=== PATIENT | male | born 1975 | race African-American/Black ===

== ENCOUNTER 2017-03-04 08:09 | Inpatient (IN) | payer OTHER ==
[2017-03-04 10:26] VITALS: BMI 32.5
--- NOTE | 2017-03-04 16:13 | HP ---
Admission [facility] Chief Complaint: I AM HERE FOR REHAB FROM ALCOHOL AND COCAINE Allergies/Adverse Reactions: Allergies Allergy/AdvReac Type Severity Reaction Status Date / Time No Known Allergies Allergy Verified 03/04/17 16:04 History of Present Illness: THIS 42 YEARS BLACK OLD MALE WITH ALCOHOL AND COCAINE DEPENDENCE,SEEKING REHAB, LAST DETOX [facility] 2014 DEPRESSION NICOTINE DEPENDENCE SYNCOPE S/P LEFT INGUINAL HERNIA REPAIR LONGEST PERIOD OF SOBRIETY 2 AND A HALF YEAR Exam Limitations: No Limitations - Ebola screening Have you traveled outside of the country in the last 21 days: No Have you had contact with anyone from an Ebola affected area: No Have you been sick,other than usual withdrawal symptoms: No - Review of Systems Constitutional: No Symptoms Reported EENT: reports: No Symptoms Reported Respiratory: reports: No Symptoms reported Cardiac: reports: No Symptoms Reported GI: reports: No Symptoms Reported : reports: No Symptoms Reported Musculoskeletal: reports: No Symptoms Reported Integumentary: reports: No Symptoms Reported Neuro: reports: No Symptoms reported Endocrine: reports: No Symptoms Reported Hematology: reports: No Symptoms Reported Psychiatric: reports: Judgement Intact, Mood/Affect Appropiate, Orientated x3, Depressed Patient History - Patient Medical History Hx Anemia: No Hx Asthma: No Hx Chronic Obstructive Pulmonary Disease (COPD): No Hx Cancer: No Hx Cardiac Disorders: No Hx Congestive Heart Failure: No Hx Hypertension: No Hx Hypercholesterolemia: No Hx Pacemaker: No HX Cerebrovascular Accident: No Hx Seizures: No Hx Dementia: No Hx Diabetes: No Hx Gastrointestinal Disorders: No Hx Liver Disease: No Hx Genitourinary Disorders: No Hx Sexually Transmitted Disorders: No (DENIES) Hx Renal Disease (ESRD): No Hx Human Immunodeficiency Virus (HIV): No (NEGATIVE HX) Hx Hepatitis C: No Hx Depression: Yes (ON MED) Hx Suicide Attempt: Yes (tried to overdose in 09/01;) Hx Schizophrenia: No Other Medical History: NO SUICIDAL,NO HOMICIDAL - Patient Surgical History Past Surgical History: Yes Hx Abdominal Surgery: Yes (L inguinal hernia repair) Anesthesia Reaction: No - PPD History Previous Implant?: Yes Documented Results: Negative w/o proof Date: 06/17/15 PPD to be Administered?: Yes - Smoking Cessation Smoking history: Current every day smoker Have you smoked in the past 12 months: Yes Aproximately how many cigarettes per day: 10 Hx Chewing Tobacco Use: No Initiated information on smoking cessation: Yes 'Breaking Loose' booklet given: 03/04/17 - Substance & Tx. History Hx Alcohol Use: Yes Hx Substance Use: Yes Substance Use Type: Alcohol, Cocaine - Substances Abused Alcohol Route: Oral Frequency: Daily Amount used: 10 BEERS/ 1 LITER VODKA Age of first use: 14 Date of Last Use: 03/01/17 Cocaine Route: Smoking Frequency: Daily Amount used: 2 GRAMS Age of first use: 15 Date of Last Use: 03/04/17 Family Disease History - Family Disease History Family Disease History: Diabetes: Mother (ALCOHOL), Other: Mother Admission Physical Exam [facility] - Vital Signs Vital Signs: Vital Signs - 24 hr 03/04/17 10:23 Temperature 96.2 F L Pulse Rate 92 H Respiratory 20 Rate Blood Pressure 107/56 - Physical General Appearance: Yes: Within Normal Limits, No Apparent Distress HEENTM: Yes: Within Normal Limits, Normal ENT Inspection, SAW, Pharynx Normal Respiratory: Yes: Lungs Clear, Normal Breath Sounds, No Respiratory Distress Neck: Yes: Within Normal Limits, Supple, Trachea in good position Breast: Yes: Within Normal Limits Cardiology: Yes: Within Normal Limits, Regular Rhythm, Regular Rate, S1, S2 Abdominal: Yes: Within Normal Limits, Normal Bowel Sounds, Non Tender, Flat, Soft Genitourinary: Yes: Within Normal Limits Back: Yes: Normal Inspection Musculoskeletal: Yes: full range of Motion Extremities: Yes: Within Normal Limits Neurological: Yes: carbide powder processor II-XII NML intact, Fully Oriented, Alert, Motor Strength 5/5 Integumentary: Yes: Within Normal Limits Lymphatic: Yes: Within Normal Limits - Diagnostic (1) Alcohol dependence Current Visit: No Status: Acute (2) Cocaine dependence Current Visit: No Status: Acute (3) Nicotine dependence Current Visit: No Status: Acute (4) Depression Current Visit: No Status: Chronic (5) Insomnia Current Visit: Yes Status: Acute (6) H/O left inguinal hernia repair Current Visit: Yes Status: Acute Cleared for Admission [facility] - Detox or Rehab Claeared for Rehab Admission: Yes [facility] Breath Alcohol Content Breath Alcohol Content: 0 Urine Drug Screen - Results Drug Screen Negative: No Urine Drug Screen Results: EL-Cocaine, TCA-Tricyclic Antidepress
[2017-03-04] MEDS ORDERED: IBUPROFEN 400 MG TABLET (FP) PO PRN (16:21)
[2017-03-04] MEDS ORDERED: P-EPHED 60MG/TRIPROLIDI 2.5MG TABLET PO PRN (16:21)
[2017-03-04] MEDS ORDERED: MAGNESIUM HYDROX 2400MG/30ML ORAL SUSPENSION 30 ML CUP PO PRN (16:21)
[2017-03-04] MEDS ORDERED: MENTHOL/PHENOL 1 EACH UD MM PRN (16:21)
[2017-03-04] MEDS ORDERED: diphenhydrAMINE HCL 50 MG CAPSULE PO PRN (16:21)
[2017-03-04] MEDS ORDERED: guaiFENesin/D-METHORPHAN HB 10 ML UNIT-DOSE CUPS PO PRN (16:21)
[2017-03-04] MEDS ORDERED: MAG HYDROX/AL HYDROX/SIMETH 30 ML UNIT-DOSE CUP PO PRN (16:21)
[2017-03-04] MEDS ORDERED: ACETAMINOPHEN 325 MG TABLET (FP) PO PRN (16:21)
[2017-03-04] MEDS ORDERED: MAGNESIUM CITRATE 300 ML BOTTLE PO PRN (16:21)
[2017-03-04] MEDS ORDERED: hydrOXYzine PAMOATE 50 MG CAPSULE (FP) PO PRN (16:21)
[2017-03-04] MEDS ORDERED: LOPERAMIDE HCL 2 MG CAPSULE PO PRN (16:21)
[2017-03-04] MEDS ORDERED: TUBERCULIN PPD 5 TU/0.1ML VIAL ID ONE (18:02)
[2017-03-04] MEDS: NICOTINE 21 MG/24 HOURS TOPICAL PATCH TD SCH (18:04)
[2017-03-04] MEDS: THIAMINE HCL 100 MG TABLET (FP) PO SCH (21:38)
[2017-03-04] MEDS: MIRTAZAPINE 30 MG TABLET (FP) PO SCH (21:38)
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
[2017-03-05 10:01] LABS: CALCIUM 8.9 mg/dL (8.5-10.1)
[2017-03-05 10:06] LABS: ALBUMIN 3.5 g/dl (3.4-5.0); ALK PHOS 81 U/L (45-117); ANION GAP 5 (8-16); BILIRUBIN,TOTAL 0.2 mg/dL (0.2-1.0); CO2 30 mmol/L (21-32); COCKROFT - GAULT 154.34; CREATININE 1.1 mg/dL (0.7-1.3); GLUCOSE,RANDOM 97 mg/dL (74-106); SGOT/AST 23 U/L (15-37); SGPT/ALT 37 U/L (12-78); TOT PROT 6.3 g/dl (6.4-8.2)
[2017-03-05 10:27] LABS: MCH 30.3 pg (25.7-33.7); MEAN CELL VOLUME 91.9 fl (80-96); MEAN PLT VOLUME 10.2 fl (7.5-11.1); PLATELET COUNT 144 K/MM3 (134-434); RDW 15.3 % (11.9-15.9); WHITE BLOOD COUNT 5.1 K/mm3 (4.0-10.0)
[2017-03-05] MEDS: LORATADINE 10 MG TABLET PO SCH (10:41)
[2017-03-05] MEDS: NICOTINE POLACRILEX 2 MG GUM BUC PRN ×2 (10:41→21:48)
[2017-03-05] MEDS: NICOTINE 21 MG/24 HOURS TOPICAL PATCH TD SCH (10:41)
[2017-03-05] MEDS: PRENATAL VITAMINS W/ FOLIC ACID TABLET (FP) PO SCH (10:41)
--- NOTE | 2017-03-05 11:37 | EKG ---
Test Reason : Blood Pressure : / mmHG Vent. Rate : 079 BPM Atrial Rate : 079 BPM P-R Int : 148 ms QRS Dur : 100 ms QT Int : 388 ms P-R-T Axes : 061 -05 026 degrees QTc Int : 444 ms NORMAL SINUS RHYTHM NONSPECIFIC ST ABNORMALITY ABNORMAL ECG NO PREVIOUS ECGS AVAILABLE Confirmed by APRIL KINCAID, AUBREE ([id number]) on 03/05/2017 11:36:52 AM Referred By: Ciera Olivares Confirmed By:AUBREE CHEN MD
[2017-03-05 15:23] LABS: URINE APPEARANCE CLEAR; URINE BILIRUBIN NEGATIVE (NEGATIVE); URINE BLOOD NEGATIVE (NEGATIVE); URINE COLOR DKYELLOW; URINE GLUCOSE (UA) NEGATIVE (NEGATIVE); URINE KETONE NEGATIVE (NEGATIVE); URINE LEUK ESTERASE NEGATIVE (NEGATIVE); URINE NITRITE NEGATIVE (NEGATIVE); URINE PROTEIN NEGATIVE (NEGATIVE); URINE UROBILINOGEN NEGATIVE E.U./dl (0.2-1.0)
[2017-03-05] MEDS: THIAMINE HCL 100 MG TABLET (FP) PO SCH (21:46)
[2017-03-05] MEDS: MIRTAZAPINE 30 MG TABLET (FP) PO SCH (21:47)
[2017-03-05] MEDS ORDERED: MIRTAZAPINE 15 MG TABLET (FP) ONE (21:47)
[2017-03-06] MEDS: NICOTINE 21 MG/24 HOURS TOPICAL PATCH TD SCH (10:26)
[2017-03-06] MEDS: PRENATAL VITAMINS W/ FOLIC ACID TABLET (FP) PO SCH (10:27)
[2017-03-06] MEDS: LORATADINE 10 MG TABLET PO SCH (10:27)
[2017-03-06] MEDS: MIRTAZAPINE 30 MG TABLET (FP) PO SCH (21:46)
[2017-03-06] MEDS: THIAMINE HCL 100 MG TABLET (FP) PO SCH (21:46)
[2017-03-07] MEDS: PRENATAL VITAMINS W/ FOLIC ACID TABLET (FP) PO SCH (10:19)
[2017-03-07] MEDS: NICOTINE 21 MG/24 HOURS TOPICAL PATCH TD SCH (10:19)
[2017-03-07] MEDS: LORATADINE 10 MG TABLET PO SCH (10:19)
[2017-03-07] MEDS: MIRTAZAPINE 30 MG TABLET (FP) PO SCH (21:50)
[2017-03-07] MEDS: THIAMINE HCL 100 MG TABLET (FP) PO SCH (21:50)
[2017-03-08] MEDS: LORATADINE 10 MG TABLET PO SCH (10:30)
[2017-03-08] MEDS: PRENATAL VITAMINS W/ FOLIC ACID TABLET (FP) PO SCH (10:30)
[2017-03-08] MEDS: NICOTINE 21 MG/24 HOURS TOPICAL PATCH TD SCH (10:30)
[2017-03-08] MEDS: MIRTAZAPINE 30 MG TABLET (FP) PO SCH (21:45)
[2017-03-08] MEDS: THIAMINE HCL 100 MG TABLET (FP) PO SCH (21:45)
[2017-03-09] MEDS: NICOTINE 21 MG/24 HOURS TOPICAL PATCH TD SCH (10:34)
[2017-03-09] MEDS: LORATADINE 10 MG TABLET PO SCH (10:34)
[2017-03-09] MEDS: PRENATAL VITAMINS W/ FOLIC ACID TABLET (FP) PO SCH (10:34)
[2017-03-09] MEDS: MIRTAZAPINE 30 MG TABLET (FP) PO SCH (21:54)
[2017-03-09] MEDS: THIAMINE HCL 100 MG TABLET (FP) PO SCH (21:54)
[2017-03-10] MEDS: PRENATAL VITAMINS W/ FOLIC ACID TABLET (FP) PO SCH (10:31)
[2017-03-10] MEDS: LORATADINE 10 MG TABLET PO SCH (10:31)
[2017-03-10] MEDS: NICOTINE 21 MG/24 HOURS TOPICAL PATCH TD SCH (10:31)
[2017-03-10] MEDS: NICOTINE POLACRILEX 2 MG GUM BUC PRN (18:33)
[2017-03-10] MEDS: THIAMINE HCL 100 MG TABLET (FP) PO SCH (21:35)
[2017-03-10] MEDS: MIRTAZAPINE 30 MG TABLET (FP) PO SCH (21:35)
[2017-03-11] MEDS: NICOTINE 21 MG/24 HOURS TOPICAL PATCH TD SCH (10:41)
[2017-03-11] MEDS: LORATADINE 10 MG TABLET PO SCH (10:41)
[2017-03-11] MEDS: PRENATAL VITAMINS W/ FOLIC ACID TABLET (FP) PO SCH (10:41)
[2017-03-11] MEDS: THIAMINE HCL 100 MG TABLET (FP) PO SCH (21:37)
[2017-03-11] MEDS: MIRTAZAPINE 30 MG TABLET (FP) PO SCH (21:37)
[2017-03-12] MEDS: LORATADINE 10 MG TABLET PO SCH (10:18)
[2017-03-12] MEDS: PRENATAL VITAMINS W/ FOLIC ACID TABLET (FP) PO SCH (10:19)
[2017-03-12] MEDS: NICOTINE 21 MG/24 HOURS TOPICAL PATCH TD SCH (10:19)
[2017-03-12] MEDS: MIRTAZAPINE 30 MG TABLET (FP) PO SCH (21:45)
[2017-03-12] MEDS: THIAMINE HCL 100 MG TABLET (FP) PO SCH (21:46)
[2017-03-13] MEDS: LORATADINE 10 MG TABLET PO SCH (10:35)
[2017-03-13] MEDS: PRENATAL VITAMINS W/ FOLIC ACID TABLET (FP) PO SCH (10:35)
[2017-03-13] MEDS: NICOTINE 21 MG/24 HOURS TOPICAL PATCH TD SCH (10:35)
[2017-03-13] MEDS: THIAMINE HCL 100 MG TABLET (FP) PO SCH (21:44)
[2017-03-13] MEDS: MIRTAZAPINE 30 MG TABLET (FP) PO SCH (21:44)
[2017-03-14] MEDS: LORATADINE 10 MG TABLET PO SCH (10:10)
[2017-03-14] MEDS: NICOTINE 21 MG/24 HOURS TOPICAL PATCH TD SCH (10:10)
[2017-03-14] MEDS: PRENATAL VITAMINS W/ FOLIC ACID TABLET (FP) PO SCH (10:10)
[2017-03-14] MEDS: THIAMINE HCL 100 MG TABLET (FP) PO SCH (21:28)
[2017-03-14] MEDS: MIRTAZAPINE 30 MG TABLET (FP) PO SCH (21:28)
[2017-03-15] MEDS: PRENATAL VITAMINS W/ FOLIC ACID TABLET (FP) PO SCH (10:24)
[2017-03-15] MEDS: LORATADINE 10 MG TABLET PO SCH (10:24)
[2017-03-15] MEDS: NICOTINE 21 MG/24 HOURS TOPICAL PATCH TD SCH (10:25)
[2017-03-15] MEDS: THIAMINE HCL 100 MG TABLET (FP) PO SCH (21:45)
[2017-03-15] MEDS: MIRTAZAPINE 30 MG TABLET (FP) PO SCH (21:45)
[2017-03-16] MEDS: PRENATAL VITAMINS W/ FOLIC ACID TABLET (FP) PO SCH (10:17)
[2017-03-16] MEDS: NICOTINE 21 MG/24 HOURS TOPICAL PATCH TD SCH (10:17)
[2017-03-16] MEDS: LORATADINE 10 MG TABLET PO SCH (10:17)
[2017-03-16] MEDS: THIAMINE HCL 100 MG TABLET (FP) PO SCH (21:58)
[2017-03-16] MEDS: MIRTAZAPINE 30 MG TABLET (FP) PO SCH (21:58)
[2017-03-17] MEDS: PRENATAL VITAMINS W/ FOLIC ACID TABLET (FP) PO SCH (10:38)
[2017-03-17] MEDS: LORATADINE 10 MG TABLET PO SCH (10:38)
[2017-03-17] MEDS: NICOTINE 21 MG/24 HOURS TOPICAL PATCH TD SCH (10:38)
[2017-03-17] MEDS: MIRTAZAPINE 30 MG TABLET (FP) PO SCH (21:45)
[2017-03-17] MEDS: THIAMINE HCL 100 MG TABLET (FP) PO SCH (21:45)
[2017-03-18 06:54] VITALS: BP 112/70; PULSE 74; TEMP 98.1
--- NOTE | 2017-03-18 09:13 | PN ---
Psychiatric Progress Note Vital Signs: Vital Signs Period Temp Pulse Resp BP Sys/[facility] Pulse Ox Last 24 Hr 98.1 F 74 16-18 112/70 Date of Session: 03/18/17 Chief Complaint:: discharge visit HPI: The patient has addressed alcohol, cocaine dependence comorbid substance induced sleep disorder. ROS: WNL Current Medications: Active Medications Generic Name Dose Route Start Last Admin Trade Name Freq PRN Reason Stop Dose Admin Acetaminophen 650 mg 03/04/17 16:21 Tylenol - PO Q4H PRN PAIN Al Hydroxide/Mg Hydroxide 30 ml 03/04/17 16:21 Mylanta Oral Suspension - PO Q6H PRN DYSPEPSIA Diphenhydramine HCl 50 mg 03/04/17 16:21 Benadryl - PO HSMR1 PRN INSOMNIA Eucalyptus/Menthol/Phenol/Sorbitol 1 each 03/04/17 16:21 Cepastat Lozenge - MM Q4H PRN SORE THROAT Guaifenesin 10 ml 03/04/17 16:21 Robitussin Dm - PO Q6H PRN COUGH Hydroxyzine Pamoate 50 mg 03/04/17 16:21 Vistaril - PO Q4H PRN AGITATION Ibuprofen 400 mg 03/04/17 16:21 03/17/17 14:09 Motrin - PO 400 mg Q6H PRN Administration SEVERE PAIN Loperamide HCl 4 mg 03/04/17 16:21 Imodium - PO Q6H PRN DIARRHEA Loratadine 10 mg 03/05/17 10:00 03/17/17 10:38 Claritin - PO 10 mg DAILY JHON Administration Magnesium Citrate 300 ml 03/04/17 16:21 Citroma - PO Q48H PRN CONSTIPATION Magnesium Hydroxide 30 ml 03/04/17 16:21 Milk Of Magnesia - PO DAILY PRN CONSTIPATION Mirtazapine 30 mg 03/04/17 22:00 03/17/17 21:45 Remeron - PO 30 mg HS JHON Administration Nicotine 21 mg 03/04/17 17:00 03/17/17 10:38 Nicoderm Patch - TD Not Given DAILY JHON Nicotine Polacrilex 2 mg 03/04/17 19:50 03/10/17 18:33 Nicorette Gum - BUC 2 mg Q2H PRN Administration NICOTINE REPLACEMENT RX Multivit/Folic Acid/Iron 1 tab 03/05/17 10:00 03/17/17 10:38 Vitamins ([facility]) - PO 1 tab DAILY JHON Administration Pseudoephedrine/Triprolidine 1 combo 03/04/17 16:21 Actifed - PO TID PRN NASAL CONGESTION Thiamine HCl 100 mg 03/04/17 22:00 03/17/17 21:45 Vitamin B1 - PO 100 mg HS JHON Administration Current Side Effect: No Lab tests ordered: No Lab tests reviewed: Yes Provider note:: Patient has completed today his treatment and met his goals, will continue to address his issues at [facility] [employer] treatment program. Patient focused on importance of changing the attitudes/ behaviors for the utilization of supports to maintain abstinence. Patient understands the negative consequences of his addiction and motivated to continue maintain abstinence. Remeorn well tolerated, script sprovided for 30 days, patient is stable for discharge today. Total face to face time:: 30 Mental Status Exam - Mental Status Exam Alert and Oriented to: Time, Place, Person Cognitive Function: Good Patient Appearance: Well Groomed Mood: Hopeful Affect: Appropriate, Mood Congruent Patient Behavior: Appropriate, Cooperative Speech Pattern: Clear, Appropriate Voice Loudness: Normal Thought Process: Intact, Goal Oriented Thought Disorder: Not Present Hallucinations: Denies Suicidal Ideation: Denies Homicidal Ideation: Denies Insight/Judgement: Fair Sleep: Fair Appetite: Good Muscle strength/Tone: Normal Gait/Station: Normal Psychiatric Treatment Plan - Problem List (1) Alcohol dependence Current Visit: No (2) Cocaine dependence Current Visit: No (3) Nicotine dependence Current Visit: No (4) Substance induced mood disorder Current Visit: Yes
[2017-03-18] MEDS: PRENATAL VITAMINS W/ FOLIC ACID TABLET (FP) PO SCH (10:19)
[2017-03-18] MEDS: NICOTINE 21 MG/24 HOURS TOPICAL PATCH TD SCH (10:19)
[2017-03-18] MEDS: LORATADINE 10 MG TABLET PO SCH (10:19)
== END 2017-03-18 11:10 | disposition home or self-care (01) | DRG 772 ==
LOC: YASAS 08:09 → Y5N 16:21
PROVIDERS: ADMIT Psychiatry & Neurology Psychiatry; ATTEND Psychiatry & Neurology Psychiatry
PROC: HZ42ZZZ Group Counseling for Substance Abuse Treatment, Cognitive-Behavioral (ICD-10-PCS; principal; 2017-03-04)
DX: F10.20 Alcohol dependence, uncomplicated (principal); F14.20 Cocaine dependence, uncomplicated; F17.210 Nicotine dependence, cigarettes, uncomplicated; F19.24 Other psychoactive substance dependence with psychoactive substance-induced mood disorder; F32.9 Major depressive disorder, single episode, unspecified; G47.00 Insomnia, unspecified; Z91.5 Personal history of self-harm
CPT/HCPCS: 36415; 80053; 81003; 85027; 86593; 93005; 93010